=== PATIENT | female | born 1980 | race Native Hawaiian/Other Pacific Islander ===

== ENCOUNTER 2017-07-21 00:37 | Emergency (ER) | payer SELFPAY ==
[~2017-07-21] VITALS: Ht 154.9 cm; Wt 80.0 kg
[~2017-07-21 00:37] MED LIST: LISI-360 PO; PRENCAP10 PO
[2017-07-21 00:39] VITALS: BP 189/121; PULSE 92; RESP 16; TEMP 97.8; O2SAT 97
[2017-07-21 01:16] LABS: BLOOD, URINE SMALL (NEG); COMMENT (UR) CULT NOT INDICATED; CULTURE IF INDICATED CULT NOT INDICATED; GLUCOSE,URINE NEG (NEG); KETONE, URINE NEG (NEG); MUCUS URINE FEW /lpf (OCC); NITRITE,URINE NEG (NEG); SQUAMOUS EPITHELIAL CELL URINE 1 /hpf (0-5); URINE COLOR YELLOW (YELLW/STRAW)
[2017-07-21 01:41] VITALS: BP 170/97; PULSE 89; RESP 18
== END 2017-07-21 01:30 | disposition left against medical advice (07) ==
LOC: NED 00:37
DX: R10.9 Unspecified abdominal pain (principal); Z53.21 Procedure and treatment not carried out due to patient leaving prior to being seen by health care provider
CPT/HCPCS: 81001; 84703